=== PATIENT | male | born 1975 | race Caucasian/White ===

== ENCOUNTER 2019-11-14 19:53 | Day surgery (SDC) | payer SELFPAY ==
[~2019-11-14 19:53] MED LIST: Dexamethasone 20 MG/5 ML VIAL ONE; Glycopyrrolate 0.2 MG/ML 5 ML SYRINGE ONE; Lidocaine 1% PF 5 ML VIAL ONE; PROPOFOL 200 MG/20 ML VIAL ONE; Rocuronium Bromide 10 MG/ML (10ML VIAL) ONE
[2019-11-14] MEDS ORDERED: Midazolam HCl 2 mg/2 ml Vial ONE (21:16)
[2019-11-14] MEDS ORDERED: Fentanyl 100 MCG/2 ML VIAL ONE (21:16)
--- NOTE | 2019-11-15 02:08 | HP ---
DATE OF CONSULTATION: 11/14/2019 REASON FOR CONSULTATION: Esophageal foreign body. HISTORY OF PRESENT ILLNESS: Adrien Cruz is a 44-year-old man with a history significant only for asthma and prior esophageal food bolus impactions. He says that he has had 2 prior urgent EGDs for food bolus impactions, but the last time would have been about 5 years ago elsewhere. He was never given any underlying diagnosis such as esophageal stricture or eosinophilic esophagitis etc. He does not take any medications. He does have frequent heartburn, so he will just take some Tums as needed. He has intermittent ongoing dysphagia for several years. Usually he would just wait and this sensation will resolve, but sometimes he has to regurgitate food particles. In this particular instance yesterday morning, he was having a sausage and cheese [place] and he felt as if it became lodged in the upper chest. Since then, he has been unable to tolerate food or drink. He will have to regurgitate liquids, if he tries to wash it down. However, he has been tolerating his secretions, but he has remained uncomfortable. He finally went into the emergency department at [facility] today and they transferred him here for our evaluation. There he had a CBC and a CMP, which were normal. He also had a neck soft tissue x-ray, which did seem to suggest a soft tissue density in the larynx or upper esophagus. The patient does not have any cough. There is no abdominal pain. No other symptoms. REVIEW OF SYSTEMS: Full review of systems including constitutional, head, eyes, ears, nose, throat, GI, , cardiovascular, respiratory, musculoskeletal, neurologic systems is negative except as noted in the HPI. PAST MEDICAL HISTORY: 1. Asthma. 2. Recurrent esophageal food bolus impactions. ALLERGIES: NO KNOWN DRUG ALLERGIES. OUTPATIENT MEDICATIONS: None. FAMILY HISTORY: He says his father has this similar issue with dysphagia and food impactions. SOCIAL HISTORY: The patient does not smoke or do drugs. Alcohol use is rare. PHYSICAL EXAMINATION: VITAL SIGNS: Temperature 98.5, pulse 90, blood pressure 142/92, 98% oxygen saturation on room air. GENERAL: A 44-year-old man sitting on the edge of bed comfortably, in no distress. SKIN: No jaundice, no rashes were palpable. EYES: No scleral icterus. Extraocular movements intact. ENT: Mucous membranes moist. No oral lesions. LYMPH: No submandibular or supraclavicular lymphadenopathy. THYROID: Nontender to palpation. HEART: Regular rate and rhythm. LUNGS: Clear to auscultation bilaterally. ABDOMEN: Soft, nontender to palpation. EXTREMITIES: No peripheral edema. VESSELS: Radial pulses 2+ bilaterally. NEUROLOGIC: Cranial nerves 2-12 intact bilaterally. No focal deficits. LABORATORY STUDIES: Outside CBC and CMP were normal. IMAGING STUDIES: Outside ER soft tissue, an x-ray was done. I reviewed the report, it does suggest soft tissue density in the posterior larynx/upper esophagus. ASSESSMENT/PLAN: 1. Probable esophageal foreign body. 2. Chronic dysphagia. 3. Chronic heartburn. 4. I had a long discussion with the patient and his . We will need to proceed with urgent EGD this evening for removal of esophageal foreign body and assessment as to the cause of his dysphagia. Suspect he may have peptic stricture versus eosinophilic esophagitis. Depending on findings, we will probably take biopsies, but usually do not perform esophageal dilation in the context of acute food impaction. Anticipate he will be able to be discharged home from the PACU following the procedure. Job ID: [id number]
--- NOTE | 2019-11-15 03:08 | OP ---
DATE OF PROCEDURE: 11/14/2019 [employer] SURGEON: None. PROCEDURE PERFORMED: EGD with foreign body removal and esophageal biopsies. INDICATION: 1. Esophageal food bolus impaction. 2. Chronic dysphagia. MEDICATIONS: See Anesthesia record. FINDINGS: After discussion of the risks, benefits, and alternatives of the procedure, informed consent was obtained and witnessed. Pre-endoscopic cardiopulmonary examination was satisfactory. Time-out was performed before sedation was achieved. Sedation was achieved with Anesthesia assistance in the endoscopy unit. The patient was endotracheally intubated under general anesthesia for airway protection. He was placed in the left lateral decubitus position. A Pentax adult upper endoscope was placed into the oropharynx and passed through the cricopharyngeus under direct visualization. There was a large meat bolus at 25 cm, which is in the mid esophagus. Using a Balderas Net, I was able to easily remove the meat bolus in one piece. Following this, the endoscope was passed back down into the esophagus for further examination. There is diffuse edema and friability of the entire esophageal mucosa with characteristic concentric folds and longitudinal furrows as well as several linear erosions in the distal esophagus, all highly suspicious for eosinophilic esophagitis. Due to the degree of edema as well as some diffuse fibrosis, the esophageal lumen is diffusely narrow. I obtained multiple biopsies from the mid esophagus for histology, to evaluate for probable eosinophilic esophagitis. There was no discrete stricture visualized. No dilation was performed today in the context of foreign body removal. The endoscope was passed beyond the GE junction and into the stomach. Forward and retroflexed views of the entire gastric mucosa were obtained. The gastric mucosa appeared normal. The endoscope was advanced through the pylorus and into the first and second portions of the duodenum, which also appeared normal. The upper endoscope was then completely withdrawn and the patient allowed to recover. The patient tolerated the procedure well. There were no immediate postprocedure complications. IMPRESSION: 1. Large meat bolus of 25 cm from the incisors, extracted completely with Balderas Net. 2. Diffuse esophageal edema, concentric folds, friability, longitudinal furrows and erosions, all highly suspicious for eosinophilic esophagitis, with mid esophageal biopsies obtained. 3. Otherwise normal EGD. RECOMMENDATIONS: 1. Liquid diet tonight and tomorrow. 2. Twice daily oral proton pump inhibitor. 3. Chew food thoroughly. 4. Followup esophageal biopsies. We will contact the patient with biopsy results. 5. Follow up in the GI Clinic in the next few weeks. Anticipate the patient will probably benefit from repeat EGD with esophageal dilation following several weeks of treatment with high-dose acid suppression. Job ID: [id number]
== END 2019-11-14 23:06 | disposition home or self-care (01) ==
LOC: ERS 19:53 → SDC/OP 21:07
PROVIDERS: ATTEND Otolaryngology
PROC: 0DB58ZX Excision of Esophagus, Via Natural or Artificial Opening Endoscopic, Diagnostic (ICD-10-PCS; principal; 2019-11-14)
PROC: 0DC58ZZ Extirpation of Matter from Esophagus, Via Natural or Artificial Opening Endoscopic (ICD-10-PCS; principal; 2019-11-14)
DX: T18.128A Food in esophagus causing other injury, initial encounter (principal); J45.909 Unspecified asthma, uncomplicated; Z79.899 Other long term (current) drug therapy; Z88.0 Allergy status to penicillin
CPT/HCPCS: 88305; 88312; 88313; 99285; J1100; J2001; J2250; J2704; J3010